=== PATIENT | male | born 1970 | race Caucasian/White ===

== ENCOUNTER → 2018-08-26 | Outpatient (CLI) | payer BC ==
[2018-08-26 08:50] LABS: ANION GAP 10 (5-19); BLOOD UREA NITROGEN 19 mg/dL (7-20); CALCIUM 9.5 mg/dL (8.4-10.2); CARBON DIOXIDE 28 mmol/L (22-30); CHLORIDE 104 mmol/L (98-107); CHOLESTEROL 135.97 mg/dL (0-200); GLUCOSE 96 mg/dL (75-110); POTASSIUM 4.6 mmol/L (3.6-5.0); SODIUM 142.1 mmol/L (137-145); TRIGLYCERIDES 143 mg/dL (<150)
[2018-08-26 09:01] LABS: DIRECT LDL 100 mg/dL (<100)
[2018-08-28 07:57] LABS: HELICOBACTER PYLORI IGA AB <9.0 units (0.0-8.9); HELICOBACTER PYLORI IGG AB <0.80 (0.00-0.79); HELICOBACTER PYLORI IGM AB <9.0 units (0.0-8.9)
== END ==
LOC: OD 07:31
PROVIDERS: ATTEND Family Medicine
DX: E03.9 Hypothyroidism, unspecified (principal); E78.2 Mixed hyperlipidemia; R10.9 Unspecified abdominal pain; Z79.899 Other long term (current) drug therapy
CPT/HCPCS: 36415; 80048; 80061; 83036; 84443; 86677